=== PATIENT | male | born 1990 | race African-American/Black ===

== ENCOUNTER 2025-10-06 03:17 | Inpatient (IN) | payer BC ==
[~2025-10-06] VITALS: Ht 172.7 cm; Wt 90.3 kg
[2025-10-06 03:23] VITALS: O2SAT 98
[2025-10-06 04:34] LABS: BASOPHILS % 0.2 % (0.0-2.0); EOSINOPHILS % 0.0 % (0.0-5.0); HEMATOCRIT. 45.0 % (42.0-52.0); HEMOGLOBIN. 15.4 g/dL (14.0-18.0); LYMPHOCYTES % 40.4 % (20.0-50.0); MEAN PLATELET VOLUME 10.2 fl (7.4-10.4); MONOCYTES % 11.7 % (2.0-8.0); NEUTROPHILS % 47.7 % (40.0-76.0); PLATELET 200 x1000/uL (130-400); RED BLOOD CELL COUNT 4.99 mill/uL (4.7-6.1); RED CELL DISTRIBUTION WIDTH 13.3 % (11.6-14.6)
[2025-10-06 04:59] LABS: CREATININE 1.0 mg/dL (0.6-1.3); UREA NITROGEN BLOOD 11 mg/dL (9-23)
[2025-10-06 05:01] LABS: TROPONIN I HIGH SENSITIVITY 17 ng/L (3.0-53)
[2025-10-06 05:05] LABS: T4 FREE 1.21 ng/dL (0.89-1.76)
[2025-10-06 06:24] LABS: *AMPHETAMINES SCREEN URINE NEGATIVE (NEGATIVE); *BARBITURATES SCREEN URINE NEGATIVE (NEGATIVE); *BENZODIAZEPINES SCREEN URINE NEGATIVE (NEGATIVE); *COCAINE SCREEN URINE NEGATIVE (NEGATIVE)
[2025-10-06 06:25] LABS: CANNABINOID URINE SCREEN NEGATIVE (NEGATIVE); ECSTASY MDMA SCREEN URINE NEGATIVE (NEGATIVE); METHADONE URINE SCREEN NEGATIVE (NEGATIVE); OPIATES URINE SCREEN NEGATIVE (NEGATIVE); PHENCYCLIDINE URINE SCREEN NEGATIVE (NEGATIVE)
[2025-10-06 07:53] VITALS: BP 127/60; PULSE 80; RESP 18; TEMP 36.8072
[2025-10-06 08:00] VITALS: BP 125/70; PULSE 86; RESP 19; TEMP 36.7; O2SAT 98
[2025-10-06] MEDS ORDERED: ONDANSETRON HCL 4MG/2ML INJ IV PRN (10:15)
[2025-10-06] MEDS ORDERED: ACETAMINOPHEN 325MG TABLET PO PRN (10:15)
[2025-10-06] MEDS: METOPROLOL SUCCINATE 50MG ER TABLET PO SCH (10:30)
[2025-10-06 12:00] VITALS: BP 116/69; PULSE 75; RESP 18; TEMP 36.4; O2SAT 98
[2025-10-06] MEDS ORDERED: METOPROLOL TARTRATE 25MG TABLET PO SCH (12:00)
[2025-10-06 16:00] VITALS: BP 133/80; PULSE 80; RESP 18; TEMP 36.8; O2SAT 100
[2025-10-06 20:00] VITALS: BP 125/72; PULSE 69; RESP 16; TEMP 36.6; O2SAT 100
[2025-10-06] MEDS: METOPROLOL TARTRATE 25MG TABLET PO SCH (21:00)
[2025-10-06] MEDS: APIXABAN 5 MG TABLET PO SCH (21:24)
[2025-10-07] VITALS: PULSE 54; RESP 16; O2SAT 98
[2025-10-07 04:00] VITALS: BP 121/76; PULSE 66; RESP 16; TEMP 36.4; O2SAT 100
[2025-10-07 08:00] VITALS: BP 127/73; PULSE 80; RESP 16; TEMP 36.5; O2SAT 98
[2025-10-07 08:15] LABS: BASOPHILS % 0.0 % (0.0-2.0); EOSINOPHILS % 0.0 % (0.0-5.0); HEMATOCRIT. 43.8 % (42.0-52.0); HEMOGLOBIN. 14.7 g/dL (14.0-18.0); LYMPHOCYTES % 46.0 % (20.0-50.0); MEAN PLATELET VOLUME 10.3 fl (7.4-10.4); MONOCYTES % 8.9 % (2.0-8.0); NEUTROPHILS % 45.1 % (40.0-76.0); PLATELET 175 x1000/uL (130-400); RED BLOOD CELL COUNT 4.85 mill/uL (4.7-6.1); RED CELL DISTRIBUTION WIDTH 13.5 % (11.6-14.6)
[2025-10-07 08:30] LABS: CREATININE 1.0 mg/dL (0.6-1.3); TRIGLYCERIDE 100 mg/dL (0-150)
[2025-10-07 08:31] LABS: LDL CHOLESTEROL 152 mg/dL (5-100); UREA NITROGEN BLOOD 8 mg/dL (9-23)
[2025-10-07 12:00] VITALS: BP 126/82; PULSE 65; RESP 16; TEMP 36.4; O2SAT 99
[2025-10-07] MEDS ORDERED: METO25TA6 PO (13:49)
[2025-10-07] MEDS ORDERED: APIX5TAB MT (13:49)
[2025-10-07 14:28] VITALS: BP 126/82; PULSE 65; RESP 16; TEMP 97.6
== END 2025-10-07 15:10 | disposition home or self-care (01) | DRG 310 ==
LOC: ER 03:17 → 8WST 05:28 → EDBEDREQ 05:48 → EDBEDREQTM 05:48 → ENRESERV 06:37
PROVIDERS: ADMIT Internal Medicine; ATTEND Internal Medicine
DX: I48.91 Unspecified atrial fibrillation (principal); Z79.899 Other long term (current) drug therapy; Z82.49 Family history of ischemic heart disease and other diseases of the circulatory system
CPT/HCPCS: 36415; 71045; 80048; 80061; 80305; 80320; 83735; 83880; 84439; 84443; 84484; 85025; 85379; 93005; 99285; G0480